=== PATIENT | female | born 1965 | race Caucasian/White ===

== ENCOUNTER → 2023-11-18 07:40 | Outpatient (REF) | payer OTHER, SELFPAY | LOC: DHCBC/DCA 07:40 | PROVIDERS: ATTENDING PHYSICIAN Internal Medicine Cardiovascular Disease; FAMILY PHYSICIAN Family Medicine | DX: R07.9 Chest pain, unspecified (principal) | CPT/HCPCS: 78452; 93017; A9500; J2785 ==

== ENCOUNTER 2025-04-26 17:10 | Emergency (ER) | payer BC, SELFPAY ==
[2025-04-26 17:18] VITALS: BP 173/92
[2025-04-26 18:19] LABS: Hematocrit 36.6 % (37.0-47.0); Hemoglobin 13.1 g/dL (12.0-16.0); Mean Corp Hgb Conc. 35.8 g/dL (33.0-37.0); Mean Corpuscular Volume 87.1 fL (81.0-99.0); Nucleated Red Blood Cells % 0 %; Platelet Count 217 10^3/uL (130-400); Red Cell Dist. Width 11.9 % (11.5-14.5)
[2025-04-26 18:31] LABS: ALT (SGPT) 23 U/L (0-35); AST (SGOT) 26 U/L (14-36); Albumin 4.7 g/dl (3.5-5.0); Alkaline Phosphatase 52 U/L (38-126); Blood Urea Nitrogen 20 mg/dl (7-17); Calcium 9.4 mg/dl (8.4-10.2); Carbon Dioxide 25 mmol/L (22-30); Chloride 106 mmol/L (98-107); Glucose 99 mg/dl (70-99); Lipase 120 U/L (23-300); Potassium 4.1 mmol/L (3.5-5.1); Sodium 137 mmol/L (135-145); Total Protein 7.1 g/dl (6.3-8.2); eGFR > 60.00
[2025-04-26 18:43] LABS: Troponin I < 0.012 ng/ml
[2025-04-26 19:31] VITALS: BMI 28.1
[2025-04-26 19:33] VITALS: BP 175/87
--- NOTE | 2025-04-26 19:37 | ED.GENMED ---
History of Present Illness
General
Chief Complaint: Chest Pain
Source: patient
Exam Limitations: none
Time Seen by Provider: 04/26/25 19:31
History of Present Illness
History of Present Illness:
59yoF with a history of hyperlipidemia, TIA, and GERD presenting for evaluation of chest pain. Symptoms began around 2:30 PM this afternoon. She reports a pinching pain in the left side of her chest that comes and goes. Pain lasts a few seconds
at a time and seems to come on randomly. Her pain has happened about 12 times since this afternoon. She denies any associated symptoms. Specifically, she denies any shortness of breath, nausea, diaphoresis, dizziness, syncope. No pleuritic or
exertional pain. Patient has had similar pains over the past several weeks which were more mild in severity. Patient had a stress test in September 2024 which was reportedly normal.
Past History
Past History
ED Past Medical History: Cancer and Hypothyroidism
ED Past Surgical History: Other
Social History
Tobacco: Non-smoker
Alcohol: Occasional
Personal:
Living: with family
Employment: Employed
Phy Exam
General Physical Exam
General Presentation: well appearing and no apparent distress
General Skin: warm and dry
General Habitus: normal
General Mental: alert
ENT Exam
ENT Exam: normocephalic
Cardiovascular Exam
Cardiovascular Exam: regular rate/rhythm, no edema and no murmur
Pulmonary Exam
Pulmonary Exam: lungs clear, no respiratory distress, no rales, chest non tender, no crackles, no rhonchi and no wheezing
Neurological Exam
Neurological Exam: alert
[place] Coma Scale
Eye Opening: Spontaneous
Verbal Response: Oriented
Motor Response: Obeys Commands
GCS Total Score: 15
Skin Exam
Skin Exam: normal color and warm/dry
Psychiatric Exam
Psychiatric Exam: normal mood/affect
Scores
Heart Score for Chest Pain Patients
STEMI patient?: No
History: Slightly or Non-Suspicious
ECG: Normal
Age: >45 - <65 years
Risk Factors: 1 or 2 Risk Factors
Troponin: </= Normal Limit
Heart Score for Chest Pain Patients: 2
Heart Score Risk: 2.5% MACE over next 6 weeks
Course
Orders/Labs/Results
Orders:
Orders
04/26/25 17:12
EKG [Electrocardiogram (*1)] Urgent
Reason for Study: Chest Pain
EKG- Treatment ONCE
04/26/25 18:05
Complete Blood Count/With Diff Urgent
Comprehensive Metabolic Panel Urgent
Lipase Urgent
Troponin I Urgent
04/26/25 19:53
Electrocardiogram (*1) Urgent
Reason for Study: Chest Pain
Cardiac Monitoring- Treatment ONCE
EKG- Treatment ONCE
CR Chest - 2 Views Urgent
Comment:
Reason For Exam: CP
04/26/25 20:31
Troponin I Urgent
Abnormal Lab Results
04/26/25
18:05
Hct 36.6 L %
(37.0-47.0)
MCH 31.2 H pg
(27.0-31.0)
BUN 20 H mg/dl
(7-17)
04/26/25 18:05
04/26/25 18:05
Vital Signs
Initial and Last Documented VS:
Initial Vital Signs
Temp Pulse BP Pulse Ox
98.6 F 61 173/92 99
04/26/25 17:18 04/26/25 17:18 04/26/25 17:18 04/26/25 17:18
Last Documented Vital Signs
Temp Pulse Resp BP Pulse Ox
98.6 F 60 11 164/89 98
04/26/25 17:18 04/26/25 21:00 04/26/25 21:00 04/26/25 20:00 04/26/25 20:15
MDM/Problems Addressed
Differential Diagnosis Includes:
59yoF here with intermittent L pinching chest pain since this afternoon. Comes and goes randomly. No active chest pain on exam. She is hypertensive with otherwise stable vital signs. Exam reassuring. Differential diagnosis includes but is not
limited to: Musculoskeletal, precordial catch syndrome, esophagitis, less likely ACS
Initial ED plan: Workup initiated in triage. EKG shows normal sinus rhythm without ischemic changes and troponin within normal limits. Will check delta troponin/EKG and chest x-ray.
*Pulse Oximetry
SaO2: 100
Oxygen Mode of Delivery: Room air
Patient hypoxic: no (99%)
*EKG
Interpreted by ED Provider?: Yes
EKG Intrepretation Date: 04/26/25
Heart Rate: 61
Rate: normal
Rhythm: sinus
[place]: normal axis
Interval: normal interval
QRS Pattern: normal QRS
Ischemia: no ischemia
*Critical Care Note
Total Time (30-74mins, 75-104mins- exclusive of procedures): Not Applicable
Update Note
Update Note:
Repeat EKG and troponin unchanged. Chest x-ray is clear. She remains pain-free on reassessment. No indication for hospitalization. She was advised to follow-up with her PCP and taper printed circuit layout. ED return precautions reviewed. Patient discharged
in stable condition.
ED Attending Note
-
Portions of this chart may have been created with voice recognition software.� Occasional wrong word or��sound alike� substitutions may have occurred due to the inherent limitations of voice recognition software.
Discharge Plan
Departure
Patient Disposition: Home (Routine Discharge)
Date of Disposition: 04/26/25
Time of Disposition: 21:54
Patient with high blood pressure during this ER visit?: Yes
Discharge Problem:
Atypical chest pain
Instructions: Chest pain - Discharge instructions
Prescriptions:
No Action
vitamin B complex 1 TAB tablet
1 tab PO DAILY Qty: 0
levothyroxine 75 MCG tablet
100 mcg PO DAILY AT 0700
coenzyme [id number] E 1 CAP capsule
1 cap PO DAILY
aspirin 81 MG tablet,delayed release (DR/EC)
81 mg PO DAILY Qty: 1 0RF
Rx Instructions:
do not take until Wednesday 09/05
pravastatin 10 mg Tablet
10 mg PO DAILY
ezetimibe 10 mg Tablet
10 mg PO DAILY
calcium-vitamin D3-vitamin K [Viactiv] 650 mg-12.5 mcg-40 mcg Tablet,Chewable
1 tab PO DAILY
Referrals:
Ricky Hewitt MD [Family Provider, Family Practice]
Activity Restrictions/Additional Instructions:
Please follow-up with your family doctor and taper printed circuit layout. Return to the ER with any new or worsening symptoms.
Interventions
Interventions:
*Risk Screen - Suicide Last Done: 04/26/25 17:20
*General Assessment Last Done: 04/26/25 17:20
*Neglect/Abuse Screening Last Done: 04/26/25 17:20
*ED- Fall Risk Assessment Last Done: 04/26/25 22:02
*ED COVID-19 Vaccine History Last Done: 04/26/25 17:20
*Nursing Disposition Last Done: 04/26/25 22:03
ED- Cardiac Assessment Last Done: 04/26/25 19:31
Discharge Date and Time
Discharge Date/Time: 04/26/25 22:03
Print Language: ROMANIAN
[2025-04-26 20:00] VITALS: BP 164/89
[2025-04-26 21:17] LABS: Troponin I < 0.012 ng/ml
== END 2025-04-26 22:03 | disposition home or self-care (01) ==
LOC: EMR 17:10
PROVIDERS: Physician Assistant; EMERGENCY PHYSICIAN Emergency Medicine; FAMILY PHYSICIAN Student in an Organized Health Care Education/Training Program
DX: R07.89 Other chest pain (principal); E03.9 Hypothyroidism, unspecified; E78.5 Hyperlipidemia, unspecified; Z86.73 Personal history of transient ischemic attack (TIA), and cerebral infarction without residual deficits
CPT/HCPCS: 99285; 71046; 80053; 83690; 84484; 85025; 93005

== ENCOUNTER → 2025-08-04 08:06 | Outpatient (REF) | payer BC, SELFPAY | LOC: RAD 08:06 | PROVIDERS: ATTENDING PHYSICIAN Internal Medicine Hematology & Oncology; FAMILY PHYSICIAN Student in an Organized Health Care Education/Training Program | DX: C50.412 Malignant neoplasm of upper-outer quadrant of left female breast (principal); M81.8 Other osteoporosis without current pathological fracture; T80.3 ABO incompatibility reaction due to transfusion of blood or blood products | CPT/HCPCS: 77080 ==

== ENCOUNTER → 2025-09-07 08:49 | Outpatient (REF) | payer BC, SELFPAY | LOC: PAVMRI 08:49 | PROVIDERS: ATTENDING PHYSICIAN Student in an Organized Health Care Education/Training Program | DX: R20.0 Anesthesia of skin (principal); G54.1 Lumbosacral plexus disorders | CPT/HCPCS: 72158; A9575 ==